=== PATIENT | male | born 1955 | race Caucasian/White ===

== ENCOUNTER 2018-06-04 08:40 | Day surgery (SDC) | payer BC ==
[~2018-06-04] VITALS: Ht 177.8 cm; Wt 89.8 kg
[~2018-06-04 08:40] MED LIST: CHOL100013 PO; FISH1000 PO; FLON1SPR NARES; GNP1000T11 PO; MAGN400T PO; MOTR200T44 PO; MULTCAP PO; NS 1,000 ML IV ONE; [UNRECOGNIZED DRUG - CODE] PO
[2018-06-04] MEDS ORDERED: PROPOFOL 200 MG/20 ML VIAL As Ordered ONE ×2 (10:32→11:06)
--- NOTE | 2018-06-04 11:12 | ROOR ---
Patient Name: Andrae Park Procedure Date: 06/04/2018 10:30 AM Date of : 1955 Age: 62 Room: [facility] Gender: Male Note Status: Finalized Procedure: Colonoscopy Indications: Rectal bleeding Providers: Pablo Wood Jr, MD Referring MD: JOLANTA ABDI JR, MD Requesting Provider: Medicines: Propofol per Anesthesia Complications: No immediate complications. Procedure: Pre-Anesthesia Assessment: - Prior to the procedure, a History and Physical was performed, and patient medications and allergies were reviewed. The patient is competent. The risks and benefits of the procedure and the sedation options and risks were discussed with the patient. All questions were answered and informed consent was obtained. Patient identification and proposed procedure were verified by the physician and the nurse in the pre-procedure area and in the procedure room. Mental Status Examination: alert and oriented. Airway Examination: normal oropharyngeal airway and neck mobility. Respiratory Examination: clear to auscultation. CV Examination: normal. ASA Grade Assessment: II - A patient with mild systemic disease. After reviewing the risks and benefits, the patient was deemed in satisfactory condition to undergo the procedure. The anesthesia plan was to use moderate sedation / analgesia (conscious sedation). Immediately prior to administration of medications, the patient was re-assessed for adequacy to receive sedatives. The heart rate, respiratory rate, oxygen saturations, blood pressure, adequacy of pulmonary ventilation, and response to care were monitored throughout the procedure. The physical status of the patient was re-assessed after the procedure. The Colonoscope was introduced through the anus and advanced to the cecum, identified by appendiceal orifice and ileocecal valve. The colonoscopy was performed without difficulty. The patient tolerated the procedure well. The quality of the bowel preparation was fair. Findings: An area of mildly congested mucosa was found in the ascending colon, in the cecum and at the appendiceal orifice. This was biopsied with a cold forceps for histology. The entire examined colon, sigmoid colon, descending colon and transverse colon appeared normal. Diffuse moderate inflammation characterized by congestion (edema), erythema, friability and mucus was found in the rectum and in the recto-sigmoid colon. Biopsies were taken with a cold forceps for histology. Impression: - Preparation of the colon was fair. - Congested mucosa in the ascending colon, in the cecum and at the appendiceal orifice. Biopsied. - The entire examined colon, sigmoid colon, descending colon and transverse colon are normal. - Diffuse moderate inflammation was found in the rectum and in the recto-sigmoid colon secondary to proctosigmoid colitis. Biopsied. Recommendation: - Discharge patient to home (ambulatory). - Return to my office in 2 weeks. - Telephone my office for pathology results in 1 week. Pablo Wood MD Pablo Wood Jr, MD 06/04/2018 11:11:32 AM Electronically signed by Pablo Wood Jr, MD Number of Addenda: 0 Note Initiated On: 06/04/2018 10:30 AM Estimated Blood Loss: Estimated blood loss: none.
[2018-06-04 11:34] VITALS: BP 124/81
== END 2018-06-04 11:45 | disposition home or self-care (01) ==
LOC: M OPP 08:40
PROVIDERS: ATTEND Surgery
DX: K63.89 Other specified diseases of intestine (principal); K62.5 Hemorrhage of anus and rectum

== ENCOUNTER → 2018-07-16 | Outpatient (CLI) | payer BC ==
[~2018-07-16] MED LIST changes: -NS 1,000 ML IV ONE
[2018-07-16 11:24] LABS: BASO % 0.4 % (0.0-1.0); EOS # 0.2 10^3/uL (0.0-0.50); EOS % 1.7 % (0.0-3.0); HEMOGLOBIN 15.3 g/dl (13.5-17.5); LYMPH # 2.8 10^3/uL (1.5-4.5); LYMPH % 28.9 % (24.0-44.0); MEAN CORPUSCULAR HEMOGLOBIN 31.1 pg (27.0-33.0); MEAN CORPUSCULAR VOLUME 91.5 fl (80.0-96.0); MONO # 0.8 10^3/uL (0.0-0.8); MONO % 8.4 % (0.0-5.0); NEUTROPHILS # 5.9 10^3/uL (1.8-7.7); NEUTROPHILS % 60.4 % (36.0-66.0); PLATELET COUNT, AUTOMATED 352 10^3/uL (150-450); RED BLOOD COUNT 4.92 10^6/uL (4.30-6.10); WHITE BLOOD COUNT 9.8 10^3/uL (4.0-10.0)
[2018-07-16 11:55] LABS: ERYTHROCYTE SEDIMENTATION RATE 4 mm/hr (0-20)
== END ==
LOC: M LAB 10:56
PROVIDERS: ATTEND Internal Medicine Gastroenterology
DX: K62.5 Hemorrhage of anus and rectum (principal)

== ENCOUNTER → 2022-02-26 | Outpatient (REF) | payer MEDICARE, BC, OTHER ==
[~2022-02-26] MED LIST changes: -MAGN400T PO; +MAGN400T33 PO
== END ==
LOC: M LAB REF 16:20
PROVIDERS: ATTEND Internal Medicine
DX: Z11.59 Encounter for screening for other viral diseases (principal); M13.0 Polyarthritis, unspecified

== ENCOUNTER → 2022-03-13 | Outpatient (REF) | payer MEDICARE, BC, OTHER | LOC: M LAB REF 13:19 | PROVIDERS: ATTEND Internal Medicine | DX: Z11.59 Encounter for screening for other viral diseases (principal); M13.0 Polyarthritis, unspecified ==

== ENCOUNTER → 2022-04-29 | Outpatient (REF) | payer MEDICARE, BC, OTHER | LOC: M LAB REF 12:19 | PROVIDERS: ATTEND Internal Medicine | DX: R97.20 Elevated prostate specific antigen [PSA] (principal) ==

== ENCOUNTER → 2022-11-21 | Outpatient (REF) | payer MEDICARE, BC, OTHER | LOC: M LABDRAWP 17:31 | PROVIDERS: ATTEND Physician Assistant | DX: R97.20 Elevated prostate specific antigen [PSA] (principal) ==

== ENCOUNTER → 2023-04-08 | Outpatient (REF) | payer MEDICARE, BC, OTHER | LOC: M SMT PRO 12:43 | PROVIDERS: ATTEND Urology | DX: C61 Malignant neoplasm of prostate (principal); R97.20 Elevated prostate specific antigen [PSA]; Z91.013 Allergy to seafood; Z80.42 Family history of malignant neoplasm of prostate; Z87.891 Personal history of nicotine dependence ==

== ENCOUNTER → 2023-06-23 | Outpatient (CLI) | payer MEDICARE, BC ==
[2023-06-23 09:49] LABS: HEMATOCRIT 46.5 % (42.0-52.0); MEAN CORPUSCULAR HEMOGLOBIN 32.3 pg (27.0-33.0); MEAN CORPUSCULAR HGB CONC 34.4 g/dl (32.0-36.5); MEAN CORPUSCULAR VOLUME 93.8 fl (80.0-96.0); PLATELET COUNT, AUTOMATED 374 10^3/uL (150-450); RED BLOOD COUNT 4.96 10^6/uL (4.30-6.10); WHITE BLOOD COUNT 10.7 10^3/uL (4.0-10.0)
[2023-06-23 10:04] LABS: INR 1.01; PARTIAL THROMBOPLASTIN TIME 26.6 SECONDS (24.8-34.2)
[2023-06-23 10:24] LABS: PROSTATIC SPECIFIC AG MONITOR 3.99 NG/ML (< 4.00)
[2023-06-23 10:26] LABS: BLOOD UREA NITROGEN 25 MG/DL (9-23); CALCIUM LEVEL 10.1 MG/DL (8.3-10.6); CARBON DIOXIDE LEVEL 28 MMOL/L (20-31); CHLORIDE LEVEL 105 MMOL/L (98-107); CREATININE FOR GFR 1.06 MG/DL (0.70-1.30); GLOMERULAR FILTRATION RATE > 60.0 (>49); GLUCOSE, FASTING 120 MG/DL (74-106); SODIUM LEVEL 140 MMOL/L (136-145)
== END ==
LOC: M PLALAB 08:42
PROVIDERS: ATTEND Urology
DX: Z01.818 Encounter for other preprocedural examination (principal); C61 Malignant neoplasm of prostate; Z86.39 Personal history of other endocrine, nutritional and metabolic disease; Z51.81 Encounter for therapeutic drug level monitoring

== ENCOUNTER → 2023-07-10 | Outpatient (REF) | payer MEDICARE, BC ==
[~2023-07-10] MED LIST changes: +MULTTAB61 PO; +OMEG10002 PO; +VITA100093 PO
== END ==
LOC: M SMT 12:17
PROVIDERS: ATTEND Urology
DX: C61 Malignant neoplasm of prostate (principal); N39.0 Urinary tract infection, site not specified

== ENCOUNTER 2023-07-23 07:30 | Inpatient (IN) | payer MEDICARE, BC ==
[~2023-07-23] VITALS: Ht 180.3 cm; Wt 88.0 kg
[2023-07-23] VITALS (10 sets, daily range): BP systolic 132–141; BP diastolic 73–78; TEMP 96.6–97.5; O2SAT 91–96
[~2023-07-23 07:30] MED LIST changes: +UNRESOLVED CLARIFICATION ENTRY XX SCH
[2023-07-23] MEDS: DOCUSATE SODIUM 100MG CAPSULE PO SCH (09:00)
[2023-07-23] MEDS ORDERED: ROCURONIUM BROMIDE 50MG/5ML VIAL As Ordered ONE (09:54)
[2023-07-23] MEDS ORDERED: MIDAZOLAM INJ 2MG/2ML VIAL As Ordered ONE (09:54)
[2023-07-23] MEDS ORDERED: LIDOCAINE 2% 100MG/5ML SDV (FOR ANES.) As Ordered ONE (09:54)
[2023-07-23] MEDS ORDERED: ONDANSETRON 4MG 2ML VIAL As Ordered ONE (09:54)
[2023-07-23] MEDS ORDERED: SUGAMMADEX SODIUM 500 MG/5 ML VIAL (BRIDION) As Ordered ONE (09:54)
[2023-07-23] MEDS ORDERED: fentaNYL 100 MCG/2 ML INJECTION As Ordered ONE (09:54)
[2023-07-23] MEDS ORDERED: propofoL 200 MG/20 ML VIAL As Ordered ONE (09:54)
[2023-07-23] MEDS ORDERED: ACETAMINOPHEN 1000MG 100ML IV BAG As Ordered ONE (09:55)
[2023-07-23] MEDS ORDERED: LR 1,000 ML IV SCH ×2 (11:20→16:20)
[2023-07-23] MEDS ORDERED: ACETAMINOPHEN TAB 650MG DOSE (2X325MG) PO PRN (11:40)
[2023-07-23] MEDS ORDERED: ONDANSETRON 4MG 2ML VIAL IV PRN ×2 (11:40→16:20)
[2023-07-23] MEDS ORDERED: PERCOCET 5MG/325MG TAB PO PRN (11:40)
[2023-07-23] MEDS: ceFAZolin SOD 2 GM in IV 1 EA IV ONE (11:43)
[2023-07-23] MEDS: HEPARIN SOD (PORCINE) 5000UNITS/ML 1ML VIAL/SYRINGE SQ ONE (11:55)
[2023-07-23] MEDS ORDERED: HYDROmorphone HCL 2MG/ML 1ML VIAL As Ordered ONE (12:33)
[2023-07-23] MEDS: ceFAZolin 2 GM/D5W 50 ML IV BAG As Ordered ONE (15:39)
[2023-07-23] MEDS ORDERED: HYDROMORPHONE HCL 0.5 MG/ 0.5 ML SYRINGE IV PRN (16:20)
[2023-07-23] MEDS ORDERED: fentaNYL 100 MCG/2 ML INJECTION IV PRN (16:20)
[2023-07-23] MEDS ORDERED: oxyCODONE 5MG TAB PO PRN (16:20)
[2023-07-23] MEDS: LIDOCAINE 1% SDV 30ML VIAL As Ordered ONE (16:40)
[2023-07-23] MEDS ORDERED: KETAMINE HCL 200MG/20ML VIAL As Ordered ONE (16:52)
[2023-07-23 17:32] LABS: HEMATOCRIT 42.7 % (42.0-52.0); HEMOGLOBIN 14.6 g/dl (13.5-17.5); MEAN CORPUSCULAR HEMOGLOBIN 32.1 pg (27.0-33.0); MEAN CORPUSCULAR HGB CONC 34.2 g/dl (32.0-36.5); MEAN CORPUSCULAR VOLUME 93.8 fl (80.0-96.0); PLATELET COUNT, AUTOMATED 301 10^3/uL (150-450); RED BLOOD COUNT 4.55 10^6/uL (4.30-6.10); WHITE BLOOD COUNT 14.5 10^3/uL (4.0-10.0)
[2023-07-23 18:02] LABS: BLOOD UREA NITROGEN 20 MG/DL (9-23); CALCIUM LEVEL 8.9 MG/DL (8.3-10.6); CARBON DIOXIDE LEVEL 24 MMOL/L (20-31); CHLORIDE LEVEL 107 MMOL/L (98-107); CREATININE FOR GFR 1.05 MG/DL (0.70-1.30); GLOMERULAR FILTRATION RATE > 60.0 (>49); GLUCOSE, FASTING 143 MG/DL (74-106); POTASSIUM SERUM 4.6 MMOL/L (3.5-5.1); SODIUM LEVEL 138 MMOL/L (136-145)
[2023-07-23] MEDS: NS 1,000 ML IV SCH (18:09)
[2023-07-23] MEDS: HEPARIN SOD (PORCINE) 5000UNITS/ML 1ML VIAL/SYRINGE SC SCH (20:17)
[2023-07-24] VITALS: O2SAT 94
[2023-07-24] MEDS: ceFAZolin SOD 1 GM in D5W MINI-BAG PLUS 50 ML IV SCH (00:30)
[2023-07-24 02:43] VITALS: O2SAT 94
[2023-07-24 04:25] VITALS: BP 118/65; TEMP 97.7; O2SAT 94
[2023-07-24 06:02] LABS: HEMOGLOBIN 14.4 g/dl (13.5-17.5); MEAN CORPUSCULAR HEMOGLOBIN 32.2 pg (27.0-33.0); MEAN CORPUSCULAR HGB CONC 34.3 g/dl (32.0-36.5); PLATELET COUNT, AUTOMATED 294 10^3/uL (150-450); RED BLOOD COUNT 4.47 10^6/uL (4.30-6.10); WHITE BLOOD COUNT 11.7 10^3/uL (4.0-10.0)
[2023-07-24 06:32] LABS: BLOOD UREA NITROGEN 16 MG/DL (9-23); CALCIUM LEVEL 8.5 MG/DL (8.3-10.6); CARBON DIOXIDE LEVEL 25 MMOL/L (20-31); CHLORIDE LEVEL 105 MMOL/L (98-107); CREATININE FOR GFR 0.95 MG/DL (0.70-1.30); GLOMERULAR FILTRATION RATE > 60.0 (>49); GLUCOSE, FASTING 133 MG/DL (74-106); POTASSIUM SERUM 4.4 MMOL/L (3.5-5.1); SODIUM LEVEL 139 MMOL/L (136-145)
[2023-07-24 08:00] VITALS: BP 118/66; TEMP 97.7; O2SAT 94
[2023-07-24] MEDS: PERCOCET 5MG/325MG TAB PO PRN (08:04)
[2023-07-24] MEDS ORDERED: COLA100C5 PO (10:48)
[2023-07-24] MEDS ORDERED: PERCOCET PO (10:48)
[2023-07-24] MEDS ORDERED: CIPR-249 PO (10:48)
[2023-07-24 12:00] VITALS: BP 139/79; TEMP 97.5; O2SAT 96
[2023-07-24 13:01] VITALS: BP 137/78
== END 2023-07-24 13:45 | disposition home or self-care (01) | DRG 708 ==
LOC: M OR 10:28 → M MSPAV 18:00
PROVIDERS: ADMIT Urology; ATTEND Urology
PROC: 0DNU4ZZ Release Omentum, Percutaneous Endoscopic Approach (ICD-10-PCS; 2023-07-23)
PROC: 8E0W4CZ Robotic Assisted Procedure of Trunk Region, Percutaneous Endoscopic Approach (ICD-10-PCS; 2023-07-23)
PROC: 0VT04ZZ Resection of Prostate, Percutaneous Endoscopic Approach (ICD-10-PCS; principal; 2023-07-23 12:00)
DX: C61 Malignant neoplasm of prostate (principal); K66.0 Peritoneal adhesions (postprocedural) (postinfection); M19.90 Unspecified osteoarthritis, unspecified site; E78.00 Pure hypercholesterolemia, unspecified; Z87.891 Personal history of nicotine dependence; Z91.013 Allergy to seafood

== ENCOUNTER → 2023-08-26 | Outpatient (CLI) | payer MEDICARE, BC ==
[~2023-08-26] MED LIST changes: +CIPR-249 PO; +COLA100C5 PO; +PERCOCET PO; -UNRESOLVED CLARIFICATION ENTRY XX SCH
== END ==
LOC: M PLALAB 07:48
PROVIDERS: ATTEND Urology
DX: C61 Malignant neoplasm of prostate (principal)

== ENCOUNTER → 2023-11-25 | Outpatient (CLI) | payer MEDICARE, BC | LOC: M PLALAB 08:35 | PROVIDERS: ATTEND Urology | DX: C61 Malignant neoplasm of prostate (principal) ==

== ENCOUNTER → 2024-04-06 | Outpatient (CLI) | payer MEDICARE, BC | LOC: M RAD 15:17 | PROVIDERS: ATTEND Internal Medicine | DX: Z12.2 Encounter for screening for malignant neoplasm of respiratory organs (principal); F17.211 Nicotine dependence, cigarettes, in remission; J43.9 Emphysema, unspecified; J98.11 Atelectasis; R91.8 Other nonspecific abnormal finding of lung field; I70.0 Atherosclerosis of aorta; I25.10 Atherosclerotic heart disease of native coronary artery without angina pectoris ==

== ENCOUNTER → 2024-05-17 | Outpatient (CLI) | payer MEDICARE, BC | LOC: M PLALAB 09:10 | PROVIDERS: ATTEND Urology | DX: C61 Malignant neoplasm of prostate (principal) ==

== ENCOUNTER → 2024-09-03 | Outpatient (CLI) | payer MEDICARE, BC | LOC: M PLALAB 07:02 | PROVIDERS: ATTEND Urology | DX: C61 Malignant neoplasm of prostate (principal) ==

== ENCOUNTER → 2024-11-17 | Outpatient (CLI) | payer MEDICARE, BC | LOC: M LAB 07:17 → M PLALAB 07:17 | PROVIDERS: ATTEND Urology | DX: C61 Malignant neoplasm of prostate (principal) ==